=== PATIENT | female | born 1950 | race African-American/Black ===

== ENCOUNTER 2022-02-06 03:57 | Inpatient (IN) | payer OTHER ==
[~2022-02-06] VITALS: Ht 172.7 cm; Wt 90.7 kg
[2022-02-06] MEDS ORDERED: ONDANSETRON HCL 4MG/2ML INJ IV STA (04:06)
[2022-02-06] MEDS ORDERED: MORPHINE SULFATE 4 MG/ML CPJ (NOT FOR IM USE) IV STA (04:06)
[2022-02-06] MEDS ORDERED: NITROGLYCERIN 0.4MG TABLET SL SL PRN (04:15)
[2022-02-06] MEDS ORDERED: ASPIRIN 81MG TABLET PO ONE (04:15)
[2022-02-06 04:38] LABS: BASOPHILS % 1.1 % (0.0-2.0); EOSINOPHILS % 1.8 % (0.0-5.0); HEMATOCRIT. 40.3 % (36.0-48.0); HEMOGLOBIN. 13.1 g/dL (12.0-16.0); LYMPHOCYTES % 50.1 % (20.0-50.0); MEAN CORPUSCULAR HEMOGLOBIN 27.5 pg (28.0-32.0); MEAN CORPUSCULAR VOLUME 84.4 fL (81.0-99.0); MONOCYTES % 10.2 % (2.0-8.0); NEUTROPHILS % 36.8 % (40.0-76.0); PLATELET 220 x1000/uL (130-400); RED BLOOD CELL COUNT 4.77 mill/uL (4.2-5.4); RED CELL DISTRIBUTION WIDTH 13.8 % (11.6-14.6)
[2022-02-06 04:46] LABS: CHLORIDE 108 mEq/L (98-107)
[2022-02-06] MEDS ORDERED: DOCUSATE SODIUM 100MG CAPSULE PO PRN (08:15)
[2022-02-06] MEDS ORDERED: CLONIDINE 0.1MG TABLET PO PRN (08:15)
[2022-02-06] MEDS ORDERED: DIPHENHYDRAMINE 50MG/ML VIAL IV PRN (08:15)
[2022-02-06] MEDS ORDERED: HYDROCODONE/ACETAMINOPHEN 5/325MG TABLET PO PRN (08:15)
[2022-02-06] MEDS ORDERED: GUAIFENESIN 200MG/10ML SUGAR FREE UDC PO PRN (08:15)
[2022-02-06] MEDS ORDERED: ENOXAPARIN 40MG/0.4ML SYR SUBCUT SCH (08:15)
[2022-02-06] MEDS ORDERED: MORPHINE SULFATE 2 MG/ML CPJ (NOT FOR IM USE) IV PRN (08:15)
[2022-02-06] MEDS ORDERED: ONDANSETRON HCL 4MG/2ML INJ IV PRN (08:15)
[2022-02-06] MEDS ORDERED: IPRATROPIUM/ALBUTEROL 0.5-3(2.5)MG/3ML NEB NEB PRN (08:15)
[2022-02-06] MEDS ORDERED: NA PHOS,M-B/NA PHOS,DI-BA ENEMA 118ML PR PRN (08:15)
[2022-02-06] MEDS ORDERED: MAGNESIUM/ALUMINUM HYDROXIDE/SIMETHICONE 30ML UDC PO PRN (08:15)
[2022-02-06] MEDS ORDERED: NALOXONE HCL 0.4MG/ML VIAL IV PRN (08:30)
[2022-02-06] MEDS: ENOXAPARIN 40MG/0.4ML SYR SUBCUT SCH (09:00)
[2022-02-06] MEDS: ASPIRIN 81MG EC TABLET PO SCH (09:29)
[2022-02-06] MEDS: SACUBITRIL/VALSARTAN 49MG/51MG TABLET PO SCH ×2 (09:29→10:16)
[2022-02-06 16:00] VITALS: BP 118/55
[2022-02-06 16:53] VITALS: BP 118/70
[2022-02-06 20:00] VITALS: BP 112/53
[2022-02-06] MEDS: ACETAMINOPHEN 325MG TABLET PO PRN (21:15)
[2022-02-07] VITALS: BP 105/45
[2022-02-07 04:00] VITALS: BP 114/52
[2022-02-07] MEDS: ACETAMINOPHEN 325MG TABLET PO PRN (04:10)
[2022-02-07 06:42] LABS: BASOPHILS % 0.9 % (0.0-2.0); EOSINOPHILS % 2.8 % (0.0-5.0); HEMATOCRIT. 36.7 % (36.0-48.0); LYMPHOCYTES % 54.1 % (20.0-50.0); MEAN CORPUSCULAR HEMOGLOBIN 27.8 pg (28.0-32.0); MEAN CORPUSCULAR VOLUME 85.1 fL (81.0-99.0); MEAN PLATELET VOLUME 9.5 fl (7.4-10.4); MONOCYTES % 11.4 % (2.0-8.0); NEUTROPHILS % 30.8 % (40.0-76.0); PLATELET 210 x1000/uL (130-400); RED BLOOD CELL COUNT 4.32 mill/uL (4.2-5.4); RED CELL DISTRIBUTION WIDTH 13.9 % (11.6-14.6)
[2022-02-07 06:50] LABS: CHLORIDE 109 mEq/L (98-107)
[2022-02-07 08:00] VITALS: BP 131/82
[2022-02-07] MEDS: SACUBITRIL/VALSARTAN 49MG/51MG TABLET PO SCH ×2 (08:23→16:58)
[2022-02-07] MEDS: ENOXAPARIN 40MG/0.4ML SYR SUBCUT SCH (08:25)
[2022-02-07 12:00] VITALS: BP 126/78
[2022-02-07 15:16] VITALS: BP 137/78
[2022-02-07 16:00] VITALS: BP 137/78
== END 2022-02-07 17:33 | disposition home or self-care (01) | DRG 315 ==
LOC: ER 03:57 → 7WST 04:37 → EDBEDREQSVC 14:22 → ENRESERV 15:03
PROVIDERS: ADMIT Internal Medicine; ATTEND Internal Medicine
PROC: 4B02XTZ Measurement of Cardiac Defibrillator, External Approach (ICD-10-PCS; principal; 2022-02-06)
DX: T82.118A Breakdown (mechanical) of other cardiac electronic device, initial encounter (principal); I42.9 Cardiomyopathy, unspecified; I11.0 Hypertensive heart disease with heart failure; I50.9 Heart failure, unspecified; E66.9 Obesity, unspecified; Z20.822 Contact with and (suspected) exposure to COVID-19; E78.5 Hyperlipidemia, unspecified; I25.10 Atherosclerotic heart disease of native coronary artery without angina pectoris; Z68.30 Body mass index [BMI] 30.0-30.9, adult; Z88.4 Allergy status to anesthetic agent; Z88.0 Allergy status to penicillin; Y71.8 Miscellaneous cardiovascular devices associated with adverse incidents, not elsewhere classified; Y92.89 Other specified places as the place of occurrence of the external cause; Z95.810 Presence of automatic (implantable) cardiac defibrillator
CPT/HCPCS: 36415; 71045; 80053; 83735; 83880; 84484; 85025; 87426; 87804; 93005; 99291; C9803; J1650; J2270; J2405